=== PATIENT | female | born 1995 | race Caucasian/White ===

== ENCOUNTER 2024-05-01 18:06 | Outpatient (CLI) | payer OTHER, SELFPAY | END 2024-05-01 18:07 | disposition home or self-care (01) | PROVIDERS: PCP Family Medicine; Visit Provider Family Medicine | DX: Z00.00 Encounter for general adult medical examination without abnormal findings (principal); E55.9 Vitamin D deficiency, unspecified; F41.9 Anxiety disorder, unspecified; K62.5 Hemorrhage of anus and rectum; F43.10 Post-traumatic stress disorder, unspecified | CPT/HCPCS: 80048; 80061; 82306; 84443 ==

== ENCOUNTER 2025-08-24 07:14 | Outpatient (CLI) | payer OTHER, SELFPAY ==
--- NOTE | 2025-08-24 07:15 | CRLHL7_ITS ---
For Patients: As a result of the Cures Act, medical imaging exams and procedure reports are released immediately into your electronic medical record. You may view this report before your referring provider. If you have questions, please contact your health care provider. OB ULTRASOUND INDICATION: Dating and viability. TECHNIQUE: Real time grayscale imaging of the fetus was performed. Transvaginal. Transvaginal imaging performed to better demonstrate the endometrium and ovaries. LMP: 06/29/2025 (unsure). JIMENA by LMP: 04/05/2026. GA: 8 w, 0 d. Previous US: No. CRL: 1.96 cm. 8 w 4 d. JIMENA: 04/01/2026. FHR: 171 BPM. Gestational sac: 3.3 cm. Appears within normal limits. Yolk sac: 4.0 mm. Appears within normal limits. Right ovary: Within normal limits. 2.6 x 2.2 x 2.8 cm. CL. Left ovary: Within normal limits. 2.1 x 1.6 x 2.2 cm. IMPRESSION: 1. Single living intrauterine measures 8 weeks 4 days with sonographic due date 04/01/2026. 2. Corpus luteal cyst right ovary measures 1.9 cm. Clifford Ruiz M.D. Diagnostic Radiologist [email or web address] OFELIA/alli carson/Dictated by: Clifford Ruiz MD @ 08/24/2025 10:13:00 AM (Electronically Signed)
== END 2025-08-24 07:15 | disposition home or self-care (01) ==
LOC: US 07:14
PROVIDERS: PCP Family Medicine; Visit Provider Registered Nurse
DX: O34.81 Maternal care for other abnormalities of pelvic organs, first trimester (principal); N83.11 Corpus luteum cyst of right ovary; Z3A.08 8 weeks gestation of pregnancy; Z67.41 Type O blood, Rh negative; Z11.51 Encounter for screening for human papillomavirus (HPV); Z12.4 Encounter for screening for malignant neoplasm of cervix
CPT/HCPCS: 76817; 83021; 86592; 86703; 86704; 86706; 86762; 86787; 86803; 86850; 86900; 86901; 87086; 87340; 87491; 87591; 87624; 88175

== ENCOUNTER 2025-08-24 08:26 | Outpatient (CLI) | payer OTHER, SELFPAY ==
[2025-08-24 15:57] LABS: Chlamydia DNA Amplified* NOT DETECTED (No Detected); GC DNA Amplified* NOT DETECTED (No Detected)
[2025-08-26 05:22] LABS: HPV Source Cervix
[2025-08-29 09:46] LABS: Pap Test Digital Imaging Done
== END 2025-08-24 08:27 | disposition home or self-care (01) ==
PROVIDERS: PCP Family Medicine; Visit Provider Physician Assistant
DX: Z34.81 Encounter for supervision of other normal pregnancy, first trimester (principal); Z67.41 Type O blood, Rh negative; Z12.4 Encounter for screening for malignant neoplasm of cervix; Z11.51 Encounter for screening for human papillomavirus (HPV)
CPT/HCPCS: 83020; 83021; 85660; 86592; 86703; 86704; 86706; 86762; 86787; 86803; 86850; 86900; 86901; 87086; 87340; 87491; 87591; 87624; 87625; 88141; 88142; 88175